=== PATIENT | male | born 1995 | race Caucasian/White ===

== ENCOUNTER 2020-08-09 21:48 | Emergency (ER) | payer MEDICAID ==
[~2020-08-09] VITALS: Ht 167.6 cm; Wt 86.2 kg
[2020-08-09 22:00] VITALS: BP_SYST 114
[2020-08-09] MEDS ORDERED: KETOROLAC TROMETHAMINE 60 MG/2 ML VIAL IM ONE (22:15)
[2020-08-09 23:15] VITALS: BP_SYST 114
== END 2020-08-09 23:15 | disposition home or self-care (01) ==
LOC: SED 21:48
DX: S32.018A Other fracture of first lumbar vertebra, initial encounter for closed fracture (principal); Z87.891 Personal history of nicotine dependence; X50.0XXA Overexertion from strenuous movement or load, initial encounter; Y93.89 Activity, other specified; Y92.89 Other specified places as the place of occurrence of the external cause; Y99.8 Other external cause status
CPT/HCPCS: 72100; 96372; 99283; J1885

== ENCOUNTER 2020-08-15 21:56 | Emergency (ER) | payer MEDICAID ==
[~2020-08-15] VITALS: Ht 167.6 cm; Wt 88.5 kg
[2020-08-15 22:00] VITALS: BP_SYST 113
[2020-08-16] MEDS ORDERED: HYDROcodone/ACETAMIN 7.5-325 MG TAB PO ONE (00:30)
[2020-08-16 00:41] VITALS: BP_SYST 115
== END 2020-08-16 00:41 | disposition home or self-care (01) ==
LOC: SED 21:56
DX: S32.019A Unspecified fracture of first lumbar vertebra, initial encounter for closed fracture (principal); R10.30 Lower abdominal pain, unspecified; M54.5 Low back pain; X50.0XXA Overexertion from strenuous movement or load, initial encounter; Y93.89 Activity, other specified; Y92.89 Other specified places as the place of occurrence of the external cause; Y99.8 Other external cause status
CPT/HCPCS: 99283